=== PATIENT | male | born 2000 | race Hispanic/Latino ===

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

== ENCOUNTER → 2019-01-05 | Outpatient (CLI) | payer MEDICAID ==
[~2019-01-05] MED LIST changes: -LIDOCAINE HCL 2% JELLY 5 ML ONE; +LIDOCAINE/PRILOCAINE CREAM 5GM TUBE TP ONE
[2019-01-05 16:19] VITALS: BP 117/76
== END | disposition home or self-care (01) ==
LOC: WHH 14:00
PROVIDERS: ATTEND Family Medicine
DX: S41.101D Unspecified open wound of right upper arm, subsequent encounter (principal); S31.104D Unspecified open wound of abdominal wall, left lower quadrant without penetration into peritoneal cavity, subsequent encounter; S31.103A Unspecified open wound of abdominal wall, right lower quadrant without penetration into peritoneal cavity, initial encounter; L73.2 Hidradenitis suppurativa; Q90.9 Down syndrome, unspecified; E66.01 Morbid (severe) obesity due to excess calories; J45.909 Unspecified asthma, uncomplicated; X58.XXXA Exposure to other specified factors, initial encounter; Y93.89 Activity, other specified; Y92.89 Other specified places as the place of occurrence of the external cause; Y99.8 Other external cause status
CPT/HCPCS: 11042; 17250; J3490

== ENCOUNTER → 2019-01-12 | Outpatient (CLI) | payer MEDICAID ==
[~2019-01-12] MED LIST changes: +LIDOCAINE HCL 2% JELLY 5 ML ONE; -LIDOCAINE/PRILOCAINE CREAM 5GM TUBE TP ONE
[2019-01-12 16:01] VITALS: BP 110/58
== END | disposition home or self-care (01) ==
LOC: WHH 13:45
PROVIDERS: ATTEND Family Medicine
DX: L98.491 Non-pressure chronic ulcer of skin of other sites limited to breakdown of skin (principal); L73.2 Hidradenitis suppurativa; Q90.9 Down syndrome, unspecified; J45.909 Unspecified asthma, uncomplicated; E66.01 Morbid (severe) obesity due to excess calories
CPT/HCPCS: 99215

== ENCOUNTER → 2019-01-16 | Outpatient (CLI) | payer MEDICAID ==
[2019-01-16 16:40] VITALS: BP 110/78
== END | disposition home or self-care (01) ==
LOC: WHH 15:00
PROVIDERS: ATTEND Family Medicine
DX: L98.491 Non-pressure chronic ulcer of skin of other sites limited to breakdown of skin (principal); L73.2 Hidradenitis suppurativa; Q90.9 Down syndrome, unspecified; E66.01 Morbid (severe) obesity due to excess calories; J45.909 Unspecified asthma, uncomplicated
CPT/HCPCS: 99214

== ENCOUNTER → 2019-01-30 | Outpatient (CLI) | payer MEDICAID ==
[2019-01-30 16:52] VITALS: BP 134/69
== END | disposition home or self-care (01) ==
LOC: WHH 13:25
PROVIDERS: ATTEND Family Medicine
DX: L98.491 Non-pressure chronic ulcer of skin of other sites limited to breakdown of skin (principal); E66.01 Morbid (severe) obesity due to excess calories; L73.2 Hidradenitis suppurativa; J45.909 Unspecified asthma, uncomplicated; Q90.9 Down syndrome, unspecified; Q30.0 Choanal atresia
CPT/HCPCS: 99215; A6197

== ENCOUNTER → 2019-02-06 | Outpatient (CLI) | payer MEDICAID ==
[2019-02-06 18:26] VITALS: BP 91/59
== END | disposition home or self-care (01) ==
LOC: WHH 13:30
PROVIDERS: ATTEND Family Medicine
DX: L98.491 Non-pressure chronic ulcer of skin of other sites limited to breakdown of skin (principal); L73.2 Hidradenitis suppurativa; S31.104D Unspecified open wound of abdominal wall, left lower quadrant without penetration into peritoneal cavity, subsequent encounter; S31.103D Unspecified open wound of abdominal wall, right lower quadrant without penetration into peritoneal cavity, subsequent encounter; E66.01 Morbid (severe) obesity due to excess calories; J45.909 Unspecified asthma, uncomplicated; Q90.9 Down syndrome, unspecified; Q30.0 Choanal atresia; X58.XXXD Exposure to other specified factors, subsequent encounter
CPT/HCPCS: 17250; 99215; A6197

== ENCOUNTER → 2019-02-13 | Outpatient (CLI) | payer MEDICAID ==
[2019-02-13 17:13] VITALS: BP 126/60
== END | disposition home or self-care (01) ==
LOC: WHH 13:30
PROVIDERS: ATTEND Family Medicine
DX: L98.491 Non-pressure chronic ulcer of skin of other sites limited to breakdown of skin (principal); S31.104D Unspecified open wound of abdominal wall, left lower quadrant without penetration into peritoneal cavity, subsequent encounter; S31.103D Unspecified open wound of abdominal wall, right lower quadrant without penetration into peritoneal cavity, subsequent encounter; L73.2 Hidradenitis suppurativa; E66.01 Morbid (severe) obesity due to excess calories; J45.909 Unspecified asthma, uncomplicated; Q90.9 Down syndrome, unspecified; Q30.0 Choanal atresia; X58.XXXD Exposure to other specified factors, subsequent encounter
CPT/HCPCS: 17250; A6196

== ENCOUNTER → 2019-02-27 | Outpatient (CLI) | payer MEDICAID ==
[2019-02-27 15:56] VITALS: BP 125/68
== END | disposition home or self-care (01) ==
LOC: WHH 13:40
PROVIDERS: ATTEND Family Medicine
DX: L98.491 Non-pressure chronic ulcer of skin of other sites limited to breakdown of skin (principal); L73.2 Hidradenitis suppurativa; E66.01 Morbid (severe) obesity due to excess calories; J45.909 Unspecified asthma, uncomplicated; Q90.9 Down syndrome, unspecified; Q30.0 Choanal atresia
CPT/HCPCS: A6248; G0463

== ENCOUNTER → 2019-03-13 | Outpatient (CLI) | payer MEDICAID ==
[2019-03-13 14:56] VITALS: BP 125/90
== END | disposition home or self-care (01) ==
LOC: WHH 13:20
PROVIDERS: ATTEND Family Medicine
DX: L98.491 Non-pressure chronic ulcer of skin of other sites limited to breakdown of skin (principal); S31.104D Unspecified open wound of abdominal wall, left lower quadrant without penetration into peritoneal cavity, subsequent encounter; S31.103D Unspecified open wound of abdominal wall, right lower quadrant without penetration into peritoneal cavity, subsequent encounter; L73.2 Hidradenitis suppurativa; E66.01 Morbid (severe) obesity due to excess calories; J45.909 Unspecified asthma, uncomplicated; Q90.9 Down syndrome, unspecified; Q30.0 Choanal atresia; X58.XXXD Exposure to other specified factors, subsequent encounter
CPT/HCPCS: 99215; A6197

== ENCOUNTER → 2019-03-27 | Outpatient (CLI) | payer MEDICAID ==
[2019-03-27 16:27] VITALS: BP 99/61
== END | disposition home or self-care (01) ==
LOC: WHH 13:00
PROVIDERS: ATTEND Family Medicine
DX: L98.491 Non-pressure chronic ulcer of skin of other sites limited to breakdown of skin (principal); S31.104D Unspecified open wound of abdominal wall, left lower quadrant without penetration into peritoneal cavity, subsequent encounter; S31.103D Unspecified open wound of abdominal wall, right lower quadrant without penetration into peritoneal cavity, subsequent encounter; L73.2 Hidradenitis suppurativa; E66.01 Morbid (severe) obesity due to excess calories; J45.909 Unspecified asthma, uncomplicated; Q90.9 Down syndrome, unspecified; Q30.0 Choanal atresia; X58.XXXD Exposure to other specified factors, subsequent encounter
CPT/HCPCS: 99214; A6197; A6248

== ENCOUNTER → 2019-04-03 | Outpatient (CLI) | payer MEDICAID ==
[2019-04-03 16:34] VITALS: BP 133/52
== END | disposition home or self-care (01) ==
LOC: WHH 13:00
PROVIDERS: ATTEND Family Medicine
DX: L98.491 Non-pressure chronic ulcer of skin of other sites limited to breakdown of skin (principal); S31.104D Unspecified open wound of abdominal wall, left lower quadrant without penetration into peritoneal cavity, subsequent encounter; S31.103D Unspecified open wound of abdominal wall, right lower quadrant without penetration into peritoneal cavity, subsequent encounter; L73.2 Hidradenitis suppurativa; E66.01 Morbid (severe) obesity due to excess calories; J45.909 Unspecified asthma, uncomplicated; Q90.9 Down syndrome, unspecified; Q30.0 Choanal atresia; X58.XXXD Exposure to other specified factors, subsequent encounter
CPT/HCPCS: 17250 ×2; A6197

== ENCOUNTER → 2019-04-17 | Outpatient (CLI) | payer MEDICAID ==
[2019-04-17 16:15] VITALS: BP 131/70
== END | disposition home or self-care (01) ==
LOC: WHH 13:00
PROVIDERS: ATTEND Family Medicine
DX: L98.491 Non-pressure chronic ulcer of skin of other sites limited to breakdown of skin (principal); S31.104D Unspecified open wound of abdominal wall, left lower quadrant without penetration into peritoneal cavity, subsequent encounter; S31.103D Unspecified open wound of abdominal wall, right lower quadrant without penetration into peritoneal cavity, subsequent encounter; L73.2 Hidradenitis suppurativa; E66.01 Morbid (severe) obesity due to excess calories; J45.909 Unspecified asthma, uncomplicated; Q90.9 Down syndrome, unspecified; Q30.0 Choanal atresia; X58.XXXD Exposure to other specified factors, subsequent encounter
CPT/HCPCS: 99215; A6197; A6248

== ENCOUNTER → 2019-04-24 | Outpatient (CLI) | payer MEDICAID ==
[2019-04-24 15:56] VITALS: BP 142/100
== END | disposition home or self-care (01) ==
LOC: WHH 13:30
PROVIDERS: ATTEND Family Medicine
DX: L98.491 Non-pressure chronic ulcer of skin of other sites limited to breakdown of skin (principal); L73.2 Hidradenitis suppurativa; E66.01 Morbid (severe) obesity due to excess calories; J45.909 Unspecified asthma, uncomplicated; Q90.9 Down syndrome, unspecified; Q30.0 Choanal atresia
CPT/HCPCS: 99215; A6197; A6248

== ENCOUNTER → 2019-05-01 | Outpatient (CLI) | payer MEDICAID ==
[2019-05-01 15:04] VITALS: BP 111/57
== END | disposition home or self-care (01) ==
LOC: WHH 13:00
PROVIDERS: ATTEND Family Medicine
DX: L98.491 Non-pressure chronic ulcer of skin of other sites limited to breakdown of skin (principal); L73.2 Hidradenitis suppurativa; E66.01 Morbid (severe) obesity due to excess calories; J45.909 Unspecified asthma, uncomplicated; Q90.9 Down syndrome, unspecified; Q30.0 Choanal atresia
CPT/HCPCS: 99215; A6197; A6248; G0463

== ENCOUNTER → 2019-05-15 | Outpatient (CLI) | payer MEDICAID ==
[2019-05-15 17:02] VITALS: BP 138/87
== END | disposition home or self-care (01) ==
LOC: WHH 13:30
PROVIDERS: ATTEND Family Medicine
DX: L98.491 Non-pressure chronic ulcer of skin of other sites limited to breakdown of skin (principal); L73.2 Hidradenitis suppurativa; J45.909 Unspecified asthma, uncomplicated; E66.01 Morbid (severe) obesity due to excess calories; Q90.9 Down syndrome, unspecified; Q30.0 Choanal atresia
CPT/HCPCS: 99214; A6197; A6260

== ENCOUNTER → 2019-05-22 | Outpatient (CLI) | payer MEDICAID ==
[~2019-05-22] MED LIST changes: +HONEY 1 APPL/ML TUBE TP ONE; -LIDOCAINE HCL 2% JELLY 5 ML ONE
[2019-05-22 15:40] VITALS: BP 128/72
== END | disposition home or self-care (01) ==
LOC: WHH 13:50
PROVIDERS: ATTEND Family Medicine
DX: L98.491 Non-pressure chronic ulcer of skin of other sites limited to breakdown of skin (principal); L73.2 Hidradenitis suppurativa; J45.909 Unspecified asthma, uncomplicated; E66.01 Morbid (severe) obesity due to excess calories; Q90.9 Down syndrome, unspecified; Q30.0 Choanal atresia
CPT/HCPCS: 17250

== ENCOUNTER → 2019-05-29 | Outpatient (CLI) | payer MEDICAID ==
[~2019-05-29] MED LIST changes: -HONEY 1 APPL/ML TUBE TP ONE; +LIDOCAINE/PRILOCAINE CREAM 5GM TUBE TP ONE
[2019-05-29 16:44] VITALS: BP 110/72
== END | disposition home or self-care (01) ==
LOC: WHH 13:45
PROVIDERS: ATTEND Family Medicine
DX: L98.491 Non-pressure chronic ulcer of skin of other sites limited to breakdown of skin (principal); L73.2 Hidradenitis suppurativa; J45.909 Unspecified asthma, uncomplicated; E66.01 Morbid (severe) obesity due to excess calories; Q90.9 Down syndrome, unspecified; Q30.0 Choanal atresia
CPT/HCPCS: 17250 ×2; A6197; J3490

== ENCOUNTER → 2019-06-05 | Outpatient (CLI) | payer MEDICAID ==
[~2019-06-05] MED LIST changes: +HONEY 1 APPL/ML TUBE TP ONE; +LIDOCAINE HCL 2% JELLY 5 ML ONE; -LIDOCAINE/PRILOCAINE CREAM 5GM TUBE TP ONE
[2019-06-05 15:23] VITALS: BP 109/63
== END | disposition home or self-care (01) ==
LOC: WHH 13:30
PROVIDERS: ATTEND Family Medicine
DX: L98.491 Non-pressure chronic ulcer of skin of other sites limited to breakdown of skin (principal); L73.2 Hidradenitis suppurativa; J45.909 Unspecified asthma, uncomplicated; E66.01 Morbid (severe) obesity due to excess calories; Q90.9 Down syndrome, unspecified; Q30.0 Choanal atresia
CPT/HCPCS: 17250 ×2; A6197

== ENCOUNTER → 2019-06-12 | Outpatient (CLI) | payer MEDICAID ==
[2019-06-12 16:27] VITALS: BP 110/70
== END | disposition home or self-care (01) ==
LOC: WHH 14:00
PROVIDERS: ATTEND Family Medicine
DX: L98.491 Non-pressure chronic ulcer of skin of other sites limited to breakdown of skin (principal); L73.2 Hidradenitis suppurativa; J45.909 Unspecified asthma, uncomplicated; E66.01 Morbid (severe) obesity due to excess calories; Q90.9 Down syndrome, unspecified; Q30.0 Choanal atresia
CPT/HCPCS: 99215; A6197

== ENCOUNTER → 2019-06-19 | Outpatient (CLI) | payer MEDICAID ==
[~2019-06-19] MED LIST changes: -HONEY 1 APPL/ML TUBE TP ONE
[2019-06-19 15:46] VITALS: BP 134/81
== END | disposition home or self-care (01) ==
LOC: WHH 13:50
PROVIDERS: ATTEND Family Medicine
DX: L98.491 Non-pressure chronic ulcer of skin of other sites limited to breakdown of skin (principal); L73.2 Hidradenitis suppurativa; J45.909 Unspecified asthma, uncomplicated; E66.01 Morbid (severe) obesity due to excess calories; Q90.9 Down syndrome, unspecified; Q30.0 Choanal atresia; L60.0 Ingrowing nail
CPT/HCPCS: 17250 ×2; A6197

== ENCOUNTER → 2019-08-03 | Outpatient (CLI) | payer MEDICAID ==
[2019-08-03 13:29] VITALS: BP 161/107
== END | disposition home or self-care (01) ==
LOC: WHH 11:45
PROVIDERS: ATTEND Family Medicine
DX: T81.89XA Other complications of procedures, not elsewhere classified, initial encounter (principal); L73.2 Hidradenitis suppurativa; Q90.9 Down syndrome, unspecified; Q30.0 Choanal atresia; J45.909 Unspecified asthma, uncomplicated; E66.01 Morbid (severe) obesity due to excess calories; Y83.8 Other surgical procedures as the cause of abnormal reaction of the patient, or of later complication, without mention of misadventure at the time of the procedure; Y92.89 Other specified places as the place of occurrence of the external cause
CPT/HCPCS: 99215; A6197

== ENCOUNTER → 2019-08-14 | Outpatient (CLI) | payer MEDICAID ==
[2019-08-14 15:54] VITALS: BP 124/66
== END | disposition home or self-care (01) ==
LOC: WHH 13:50
PROVIDERS: ATTEND Family Medicine
DX: T81.89XD Other complications of procedures, not elsewhere classified, subsequent encounter (principal); L98.492 Non-pressure chronic ulcer of skin of other sites with fat layer exposed; L73.2 Hidradenitis suppurativa; J45.909 Unspecified asthma, uncomplicated; E66.01 Morbid (severe) obesity due to excess calories; Q90.9 Down syndrome, unspecified; Q30.0 Choanal atresia; Y83.8 Other surgical procedures as the cause of abnormal reaction of the patient, or of later complication, without mention of misadventure at the time of the procedure
CPT/HCPCS: 11042; A6197; A6248

== ENCOUNTER → 2019-08-24 | Outpatient (CLI) | payer MEDICAID ==
[~2019-08-24] MED LIST changes: -LIDOCAINE HCL 2% JELLY 5 ML ONE; +LIDOCAINE/PRILOCAINE CREAM 5GM TUBE TP ONE
[2019-08-24 14:11] VITALS: BP 124/89
== END | disposition home or self-care (01) ==
LOC: WHH 10:00
PROVIDERS: ATTEND Family Medicine
DX: T81.89XD Other complications of procedures, not elsewhere classified, subsequent encounter (principal); L98.492 Non-pressure chronic ulcer of skin of other sites with fat layer exposed; L73.2 Hidradenitis suppurativa; J45.909 Unspecified asthma, uncomplicated; E66.01 Morbid (severe) obesity due to excess calories; Q90.9 Down syndrome, unspecified; Q30.0 Choanal atresia; Y83.8 Other surgical procedures as the cause of abnormal reaction of the patient, or of later complication, without mention of misadventure at the time of the procedure
CPT/HCPCS: 11042; A6197; J3490

== ENCOUNTER → 2019-09-04 | Outpatient (CLI) | payer MEDICAID ==
[2019-09-04 15:18] VITALS: BP 110/66
== END | disposition home or self-care (01) ==
LOC: WHH 13:40
PROVIDERS: ATTEND Family Medicine
DX: T81.89XD Other complications of procedures, not elsewhere classified, subsequent encounter (principal); L98.492 Non-pressure chronic ulcer of skin of other sites with fat layer exposed; L73.2 Hidradenitis suppurativa; J45.909 Unspecified asthma, uncomplicated; E66.01 Morbid (severe) obesity due to excess calories; Q90.9 Down syndrome, unspecified; Q30.0 Choanal atresia; Y83.8 Other surgical procedures as the cause of abnormal reaction of the patient, or of later complication, without mention of misadventure at the time of the procedure
CPT/HCPCS: 11042; A6197; J3490

== ENCOUNTER → 2019-09-11 | Outpatient (CLI) | payer MEDICAID ==
[~2019-09-11] MED LIST changes: +HONEY 1 APPL/ML TUBE TP ONE
[2019-09-11 15:18] VITALS: BP 106/66
== END | disposition home or self-care (01) ==
LOC: WHH 13:45
PROVIDERS: ATTEND Family Medicine
DX: T81.89XD Other complications of procedures, not elsewhere classified, subsequent encounter (principal); L98.492 Non-pressure chronic ulcer of skin of other sites with fat layer exposed; L73.2 Hidradenitis suppurativa; J45.909 Unspecified asthma, uncomplicated; E66.01 Morbid (severe) obesity due to excess calories; Q90.9 Down syndrome, unspecified; Q30.0 Choanal atresia; Y83.8 Other surgical procedures as the cause of abnormal reaction of the patient, or of later complication, without mention of misadventure at the time of the procedure
CPT/HCPCS: 11042; 17250; A6197 ×2; J3490; 11045

== ENCOUNTER → 2019-09-28 | Outpatient (CLI) | payer MEDICAID ==
[~2019-09-28] MED LIST changes: -HONEY 1 APPL/ML TUBE TP ONE
[2019-09-28 15:07] VITALS: BP 110/66
== END | disposition home or self-care (01) ==
LOC: WHH 13:00
PROVIDERS: ATTEND Family Medicine
DX: T81.89XD Other complications of procedures, not elsewhere classified, subsequent encounter (principal); L98.492 Non-pressure chronic ulcer of skin of other sites with fat layer exposed; L73.2 Hidradenitis suppurativa; J45.909 Unspecified asthma, uncomplicated; E66.01 Morbid (severe) obesity due to excess calories; Q90.9 Down syndrome, unspecified; Q30.0 Choanal atresia; Y83.8 Other surgical procedures as the cause of abnormal reaction of the patient, or of later complication, without mention of misadventure at the time of the procedure
CPT/HCPCS: 17250; A6197 ×2; A6260; J3490

== ENCOUNTER → 2019-10-02 | Outpatient (CLI) | payer MEDICAID ==
[2019-10-02 15:51] VITALS: BP 110/72
== END | disposition home or self-care (01) ==
LOC: WHH 13:40
PROVIDERS: ATTEND Family Medicine
DX: T81.89XD Other complications of procedures, not elsewhere classified, subsequent encounter (principal); L98.492 Non-pressure chronic ulcer of skin of other sites with fat layer exposed; L73.2 Hidradenitis suppurativa; J45.909 Unspecified asthma, uncomplicated; E66.01 Morbid (severe) obesity due to excess calories; Q90.9 Down syndrome, unspecified; Q30.0 Choanal atresia; Y83.8 Other surgical procedures as the cause of abnormal reaction of the patient, or of later complication, without mention of misadventure at the time of the procedure
CPT/HCPCS: 11042; A6197; J3490; 17250

== ENCOUNTER → 2019-10-09 | Outpatient (CLI) | payer MEDICAID ==
[~2019-10-09] MED LIST changes: +HONEY 1 APPL/ML TUBE TP ONE; -LIDOCAINE/PRILOCAINE CREAM 5GM TUBE TP ONE
[2019-10-09 15:23] VITALS: BP 106/77
== END | disposition home or self-care (01) ==
LOC: WHH 13:30
PROVIDERS: ATTEND Family Medicine
DX: T81.89XD Other complications of procedures, not elsewhere classified, subsequent encounter (principal); L98.492 Non-pressure chronic ulcer of skin of other sites with fat layer exposed; L73.2 Hidradenitis suppurativa; J45.909 Unspecified asthma, uncomplicated; E66.01 Morbid (severe) obesity due to excess calories; Q90.9 Down syndrome, unspecified; Q30.0 Choanal atresia; Y83.8 Other surgical procedures as the cause of abnormal reaction of the patient, or of later complication, without mention of misadventure at the time of the procedure
CPT/HCPCS: 11042; A6197

== ENCOUNTER → 2019-10-16 | Outpatient (CLI) | payer MEDICAID ==
[~2019-10-16] MED LIST changes: -HONEY 1 APPL/ML TUBE TP ONE; +LIDOCAINE HCL 2% JELLY 5 ML ONE; +SILVER NITRATE APPLICATOR 1 SWAB TP ONE
[2019-10-16 15:18] VITALS: BP 126/83
== END | disposition home or self-care (01) ==
LOC: WHH 13:50
PROVIDERS: ATTEND Family Medicine
DX: T81.89XD Other complications of procedures, not elsewhere classified, subsequent encounter (principal); L98.491 Non-pressure chronic ulcer of skin of other sites limited to breakdown of skin; L73.2 Hidradenitis suppurativa; J45.909 Unspecified asthma, uncomplicated; E66.01 Morbid (severe) obesity due to excess calories; Q90.9 Down syndrome, unspecified; Q30.0 Choanal atresia; Y83.8 Other surgical procedures as the cause of abnormal reaction of the patient, or of later complication, without mention of misadventure at the time of the procedure
CPT/HCPCS: 17250; A6197

== ENCOUNTER → 2019-10-23 | Outpatient (CLI) | payer MEDICAID ==
[~2019-10-23] MED LIST changes: -SILVER NITRATE APPLICATOR 1 SWAB TP ONE
[2019-10-23 14:02] VITALS: BP 100/70
== END | disposition home or self-care (01) ==
LOC: WHH 12:30
PROVIDERS: ATTEND Family Medicine
DX: T81.89XD Other complications of procedures, not elsewhere classified, subsequent encounter (principal); L98.492 Non-pressure chronic ulcer of skin of other sites with fat layer exposed; L73.2 Hidradenitis suppurativa; J45.909 Unspecified asthma, uncomplicated; E66.01 Morbid (severe) obesity due to excess calories; Q90.9 Down syndrome, unspecified; Q30.0 Choanal atresia; Y83.8 Other surgical procedures as the cause of abnormal reaction of the patient, or of later complication, without mention of misadventure at the time of the procedure
CPT/HCPCS: 11042; 17250; A6197

== ENCOUNTER → 2019-11-09 | Outpatient (CLI) | payer MEDICAID ==
[2019-11-09 15:25] VITALS: BP 128/78
== END | disposition home or self-care (01) ==
LOC: WHH 13:45
PROVIDERS: ATTEND Family Medicine
DX: T81.89XD Other complications of procedures, not elsewhere classified, subsequent encounter (principal); L98.492 Non-pressure chronic ulcer of skin of other sites with fat layer exposed; L73.2 Hidradenitis suppurativa; J45.909 Unspecified asthma, uncomplicated; E66.01 Morbid (severe) obesity due to excess calories; Q90.9 Down syndrome, unspecified; Q30.0 Choanal atresia; Y83.8 Other surgical procedures as the cause of abnormal reaction of the patient, or of later complication, without mention of misadventure at the time of the procedure
CPT/HCPCS: 99214; A6197

== ENCOUNTER → 2019-11-13 | Outpatient (CLI) | payer MEDICAID ==
[2019-11-13 15:46] VITALS: BP 132/72
== END | disposition home or self-care (01) ==
LOC: WHH 13:40
PROVIDERS: ATTEND Family Medicine
DX: T81.89XD Other complications of procedures, not elsewhere classified, subsequent encounter (principal); L98.492 Non-pressure chronic ulcer of skin of other sites with fat layer exposed; L73.2 Hidradenitis suppurativa; J45.909 Unspecified asthma, uncomplicated; E66.01 Morbid (severe) obesity due to excess calories; Q90.9 Down syndrome, unspecified; Q30.0 Choanal atresia; Y83.8 Other surgical procedures as the cause of abnormal reaction of the patient, or of later complication, without mention of misadventure at the time of the procedure
CPT/HCPCS: 11042; A6196; 17250

== ENCOUNTER → 2019-11-27 | Outpatient (CLI) | payer MEDICAID ==
[~2019-11-27] MED LIST changes: +GENTAMICIN SULFATE 15 GM CREAM.GM. TP ONE; -LIDOCAINE HCL 2% JELLY 5 ML ONE; +LIDOCAINE HCL 4% LTA SOL 4 ML VIAL ONE
[2019-11-27 15:03] VITALS: BP 140/68
== END | disposition home or self-care (01) ==
LOC: WHH 13:45
PROVIDERS: ATTEND Family Medicine
DX: L98.492 Non-pressure chronic ulcer of skin of other sites with fat layer exposed (principal); L73.2 Hidradenitis suppurativa; E66.01 Morbid (severe) obesity due to excess calories; Q30.0 Choanal atresia; Q90.9 Down syndrome, unspecified; J45.909 Unspecified asthma, uncomplicated
CPT/HCPCS: 11042; 17250; A6197

== ENCOUNTER → 2019-12-04 | Outpatient (CLI) | payer MEDICAID ==
[~2019-12-04] MED LIST changes: -GENTAMICIN SULFATE 15 GM CREAM.GM. TP ONE; -LIDOCAINE HCL 4% LTA SOL 4 ML VIAL ONE; +LIDOCAINE/PRILOCAINE CREAM 5GM TUBE TP ONE; +SILVER NITRATE APPLICATOR 1 SWAB TP ONE
[2019-12-04 17:05] VITALS: BP 98/57
== END | disposition home or self-care (01) ==
LOC: WHH 13:00
PROVIDERS: ATTEND Family Medicine
DX: L98.492 Non-pressure chronic ulcer of skin of other sites with fat layer exposed (principal); L73.2 Hidradenitis suppurativa; E66.01 Morbid (severe) obesity due to excess calories; Q30.0 Choanal atresia; Q90.9 Down syndrome, unspecified; J45.909 Unspecified asthma, uncomplicated
CPT/HCPCS: 11042; A6197; J3490

== ENCOUNTER → 2019-12-11 | Outpatient (CLI) | payer MEDICAID ==
[~2019-12-11] MED LIST changes: -SILVER NITRATE APPLICATOR 1 SWAB TP ONE
[2019-12-11 16:00] VITALS: BP 95/59
== END | disposition home or self-care (01) ==
LOC: WHH 13:00
PROVIDERS: ATTEND Family Medicine
DX: L98.491 Non-pressure chronic ulcer of skin of other sites limited to breakdown of skin (principal); L73.2 Hidradenitis suppurativa; E66.01 Morbid (severe) obesity due to excess calories; J45.909 Unspecified asthma, uncomplicated; Q30.0 Choanal atresia
CPT/HCPCS: 17250 ×2; A6196; J3490

== ENCOUNTER → 2019-12-18 | Outpatient (CLI) | payer MEDICAID ==
[~2019-12-18] MED LIST changes: +SILVER NITRATE APPLICATOR 1 SWAB TP ONE
[2019-12-18 15:35] VITALS: BP 111/51
== END | disposition home or self-care (01) ==
LOC: WHH 13:00
PROVIDERS: ATTEND Family Medicine
DX: L98.492 Non-pressure chronic ulcer of skin of other sites with fat layer exposed (principal); L73.2 Hidradenitis suppurativa; E66.01 Morbid (severe) obesity due to excess calories; J45.909 Unspecified asthma, uncomplicated; Q30.0 Choanal atresia; Q90.9 Down syndrome, unspecified
CPT/HCPCS: 11042; A6196; J3490; 17250

== ENCOUNTER → 2019-12-25 | Outpatient (CLI) | payer MEDICAID ==
[2019-12-25 16:49] VITALS: BP 110/73
== END | disposition home or self-care (01) ==
LOC: WHH 13:00
PROVIDERS: ATTEND Family Medicine
DX: L98.492 Non-pressure chronic ulcer of skin of other sites with fat layer exposed (principal); L73.2 Hidradenitis suppurativa; E66.01 Morbid (severe) obesity due to excess calories; J45.909 Unspecified asthma, uncomplicated; Q30.0 Choanal atresia; Q90.9 Down syndrome, unspecified
CPT/HCPCS: 11042; 17250; A6197

== ENCOUNTER → 2020-01-01 | Outpatient (CLI) | payer MEDICAID ==
[~2020-01-01] MED LIST changes: -LIDOCAINE/PRILOCAINE CREAM 5GM TUBE TP ONE
[2020-01-01 14:54] VITALS: BP 96/68
== END | disposition home or self-care (01) ==
LOC: WHH 13:00
PROVIDERS: ATTEND Family Medicine
DX: L98.492 Non-pressure chronic ulcer of skin of other sites with fat layer exposed (principal); L73.2 Hidradenitis suppurativa; E66.01 Morbid (severe) obesity due to excess calories; J45.909 Unspecified asthma, uncomplicated; Q90.9 Down syndrome, unspecified; Q30.0 Choanal atresia
CPT/HCPCS: 11042; A6197; 17250

== ENCOUNTER → 2020-01-08 | Outpatient (CLI) | payer MEDICAID ==
[2020-01-08 16:55] VITALS: BP 108/72
== END | disposition home or self-care (01) ==
LOC: WHH 13:00
PROVIDERS: ATTEND Family Medicine
DX: L98.492 Non-pressure chronic ulcer of skin of other sites with fat layer exposed (principal); L73.2 Hidradenitis suppurativa; E66.01 Morbid (severe) obesity due to excess calories; Q30.0 Choanal atresia; Q90.9 Down syndrome, unspecified; J45.909 Unspecified asthma, uncomplicated
CPT/HCPCS: 11042; A6197; 17250

== ENCOUNTER → 2020-01-15 | Outpatient (CLI) | payer MEDICAID ==
[~2020-01-15] MED LIST changes: +LIDOCAINE/PRILOCAINE CREAM 5GM TUBE TP ONE; -SILVER NITRATE APPLICATOR 1 SWAB TP ONE
[2020-01-15 15:57] VITALS: BP 114/60
== END | disposition home or self-care (01) ==
LOC: WHH 13:30
PROVIDERS: ATTEND Family Medicine
DX: L98.491 Non-pressure chronic ulcer of skin of other sites limited to breakdown of skin (principal); L73.2 Hidradenitis suppurativa; E66.01 Morbid (severe) obesity due to excess calories; Q30.0 Choanal atresia; Q90.9 Down syndrome, unspecified; J45.909 Unspecified asthma, uncomplicated
CPT/HCPCS: 17250; A6196; J3490

== ENCOUNTER → 2020-01-22 | Outpatient (CLI) | payer MEDICAID ==
[~2020-01-22] MED LIST changes: +HONEY 1 APPL/ML TUBE TP ONE
[2020-01-22 14:21] VITALS: BP 92/52
== END | disposition home or self-care (01) ==
LOC: WHH 13:00
PROVIDERS: ATTEND Family Medicine
DX: L98.492 Non-pressure chronic ulcer of skin of other sites with fat layer exposed (principal); L73.2 Hidradenitis suppurativa; E66.01 Morbid (severe) obesity due to excess calories; J45.909 Unspecified asthma, uncomplicated; Q30.0 Choanal atresia; Q90.9 Down syndrome, unspecified
CPT/HCPCS: 11042; A6197; J3490

== ENCOUNTER → 2020-01-29 | Outpatient (CLI) | payer MEDICAID ==
[~2020-01-29] MED LIST changes: -HONEY 1 APPL/ML TUBE TP ONE
[2020-01-29 15:32] VITALS: BP 98/57
== END | disposition home or self-care (01) ==
LOC: WHH 13:00
PROVIDERS: ATTEND Family Medicine
DX: L98.492 Non-pressure chronic ulcer of skin of other sites with fat layer exposed (principal); L73.2 Hidradenitis suppurativa; E66.01 Morbid (severe) obesity due to excess calories; J45.909 Unspecified asthma, uncomplicated; Q30.0 Choanal atresia; Q90.9 Down syndrome, unspecified
CPT/HCPCS: 11042; A6196; J3490

== ENCOUNTER → 2020-02-05 | Outpatient (CLI) | payer MEDICAID ==
[~2020-02-05] MED LIST changes: -LIDOCAINE/PRILOCAINE CREAM 5GM TUBE TP ONE; +SILVER NITRATE APPLICATOR 1 SWAB TP ONE
[2020-02-05 15:32] VITALS: BP 110/78
== END | disposition home or self-care (01) ==
LOC: WHH 13:00
PROVIDERS: ATTEND Family Medicine
DX: L98.492 Non-pressure chronic ulcer of skin of other sites with fat layer exposed (principal); L73.2 Hidradenitis suppurativa; E66.01 Morbid (severe) obesity due to excess calories; J45.909 Unspecified asthma, uncomplicated; Q30.0 Choanal atresia; Q90.9 Down syndrome, unspecified
CPT/HCPCS: 11042; A6197; 17250

== ENCOUNTER → 2020-02-12 | Outpatient (CLI) | payer MEDICAID ==
[~2020-02-12] MED LIST changes: +LIDOCAINE/PRILOCAINE CREAM 5GM TUBE TP ONE
[2020-02-12 15:00] VITALS: BP 112/61
== END | disposition home or self-care (01) ==
LOC: WHH 13:00
PROVIDERS: ATTEND Family Medicine
DX: L98.492 Non-pressure chronic ulcer of skin of other sites with fat layer exposed (principal); L73.2 Hidradenitis suppurativa; E66.01 Morbid (severe) obesity due to excess calories; J45.909 Unspecified asthma, uncomplicated; Q30.0 Choanal atresia; Q90.9 Down syndrome, unspecified
CPT/HCPCS: 11042; 17250; A6197; J3490

== ENCOUNTER → 2020-02-19 | Outpatient (CLI) | payer MEDICAID ==
[~2020-02-19] MED LIST changes: +HONEY 1 APPL/ML TUBE TP ONE; -LIDOCAINE/PRILOCAINE CREAM 5GM TUBE TP ONE
[2020-02-19 16:07] VITALS: BP 134/66
== END | disposition home or self-care (01) ==
LOC: WHH 14:00
PROVIDERS: ATTEND Family Medicine
DX: L98.492 Non-pressure chronic ulcer of skin of other sites with fat layer exposed (principal); L73.2 Hidradenitis suppurativa; E66.01 Morbid (severe) obesity due to excess calories; J45.909 Unspecified asthma, uncomplicated; Q90.9 Down syndrome, unspecified; Q30.0 Choanal atresia
CPT/HCPCS: 11042; 17250; A6197

== ENCOUNTER → 2020-02-26 | Outpatient (CLI) | payer MEDICAID ==
[~2020-02-26] MED LIST changes: -HONEY 1 APPL/ML TUBE TP ONE; +LIDOCAINE HCL 4% LTA SOL 4 ML VIAL ONE; -SILVER NITRATE APPLICATOR 1 SWAB TP ONE
[2020-02-26 16:16] VITALS: BP 136/98
== END | disposition home or self-care (01) ==
LOC: WHH 13:00
PROVIDERS: ATTEND Family Medicine
DX: L98.492 Non-pressure chronic ulcer of skin of other sites with fat layer exposed (principal); L73.2 Hidradenitis suppurativa; E66.01 Morbid (severe) obesity due to excess calories; J45.909 Unspecified asthma, uncomplicated; Q30.0 Choanal atresia; Q90.9 Down syndrome, unspecified
CPT/HCPCS: 11042; A6197

== ENCOUNTER → 2020-03-18 | Outpatient (CLI) | payer MEDICAID ==
[~2020-03-18] MED LIST changes: +HONEY 1 APPL/ML TUBE TP ONE; -LIDOCAINE HCL 4% LTA SOL 4 ML VIAL ONE
[2020-03-18 15:24] VITALS: BP 110/88
== END | disposition home or self-care (01) ==
LOC: WHH 13:00
PROVIDERS: ATTEND Family Medicine
DX: L98.491 Non-pressure chronic ulcer of skin of other sites limited to breakdown of skin (principal); L73.2 Hidradenitis suppurativa; E66.01 Morbid (severe) obesity due to excess calories; J45.909 Unspecified asthma, uncomplicated; Q30.0 Choanal atresia; Q90.9 Down syndrome, unspecified
CPT/HCPCS: 99215; A6197

== ENCOUNTER → 2020-04-01 | Outpatient (CLI) | payer MEDICAID ==
[2020-04-01 16:16] VITALS: BP 131/69
== END | disposition home or self-care (01) ==
LOC: WHH 13:00
PROVIDERS: ATTEND Family Medicine
DX: L98.492 Non-pressure chronic ulcer of skin of other sites with fat layer exposed (principal); L73.2 Hidradenitis suppurativa; E66.01 Morbid (severe) obesity due to excess calories; J45.909 Unspecified asthma, uncomplicated; Q30.0 Choanal atresia; Q90.0 Trisomy 21, nonmosaicism (meiotic nondisjunction)
CPT/HCPCS: 11042; A6197

== ENCOUNTER → 2020-04-15 | Outpatient (CLI) | payer MEDICAID ==
[2020-04-15 17:02] VITALS: BP 115/83
== END | disposition home or self-care (01) ==
LOC: WHH 13:00
PROVIDERS: ATTEND Family Medicine
DX: L98.492 Non-pressure chronic ulcer of skin of other sites with fat layer exposed (principal); L73.2 Hidradenitis suppurativa; E66.01 Morbid (severe) obesity due to excess calories; J45.909 Unspecified asthma, uncomplicated; Q30.0 Choanal atresia; Q90.0 Trisomy 21, nonmosaicism (meiotic nondisjunction)
CPT/HCPCS: 11042; A6197; A6213

== ENCOUNTER → 2020-05-06 | Outpatient (CLI) | payer MEDICAID ==
[~2020-05-06] MED LIST changes: -HONEY 1 APPL/ML TUBE TP ONE; +LIDOCAINE HCL 4% LTA SOL 4 ML VIAL ONE
== END | disposition home or self-care (01) ==
LOC: WHH 13:00
PROVIDERS: ATTEND Family Medicine
DX: T81.41XD Infection following a procedure, superficial incisional surgical site, subsequent encounter (principal); L98.492 Non-pressure chronic ulcer of skin of other sites with fat layer exposed; L73.2 Hidradenitis suppurativa; Q30.0 Choanal atresia; E66.01 Morbid (severe) obesity due to excess calories; J45.909 Unspecified asthma, uncomplicated; Q90.9 Down syndrome, unspecified; Z68.43 Body mass index [BMI] 50.0-59.9, adult; Y83.8 Other surgical procedures as the cause of abnormal reaction of the patient, or of later complication, without mention of misadventure at the time of the procedure
CPT/HCPCS: 11042; A6197

== ENCOUNTER → 2020-05-27 | Outpatient (CLI) | payer MEDICAID ==
[~2020-05-27] MED LIST changes: +HONEY 1 APPL/ML TUBE TP ONE
== END | disposition home or self-care (01) ==
LOC: WHH 13:00
PROVIDERS: ATTEND Family Medicine
DX: T81.41XD Infection following a procedure, superficial incisional surgical site, subsequent encounter (principal); L98.492 Non-pressure chronic ulcer of skin of other sites with fat layer exposed; L73.2 Hidradenitis suppurativa; Q30.0 Choanal atresia; E66.01 Morbid (severe) obesity due to excess calories; J45.909 Unspecified asthma, uncomplicated; Q90.9 Down syndrome, unspecified; Z68.43 Body mass index [BMI] 50.0-59.9, adult; Y83.8 Other surgical procedures as the cause of abnormal reaction of the patient, or of later complication, without mention of misadventure at the time of the procedure
CPT/HCPCS: 11042; A6197

== ENCOUNTER → 2020-06-17 | Outpatient (CLI) | payer MEDICAID | END | disposition home or self-care (01) | LOC: WHH 13:05 | PROVIDERS: ATTEND Family Medicine | DX: T81.41XD Infection following a procedure, superficial incisional surgical site, subsequent encounter (principal); L98.492 Non-pressure chronic ulcer of skin of other sites with fat layer exposed; L73.2 Hidradenitis suppurativa; Q30.0 Choanal atresia; E66.01 Morbid (severe) obesity due to excess calories; J45.909 Unspecified asthma, uncomplicated; Q90.9 Down syndrome, unspecified; Z68.43 Body mass index [BMI] 50.0-59.9, adult; Y83.8 Other surgical procedures as the cause of abnormal reaction of the patient, or of later complication, without mention of misadventure at the time of the procedure | CPT/HCPCS: 11042; 17250; A6197 ==

== ENCOUNTER → 2020-07-01 | Outpatient (CLI) | payer MEDICAID ==
[~2020-07-01] MED LIST changes: -HONEY 1 APPL/ML TUBE TP ONE; -LIDOCAINE HCL 4% LTA SOL 4 ML VIAL ONE; +LIDOCAINE/PRILOCAINE CREAM 5GM TUBE TP ONE
== END | disposition home or self-care (01) ==
LOC: WHH 13:00
PROVIDERS: ATTEND Family Medicine
DX: T81.41XD Infection following a procedure, superficial incisional surgical site, subsequent encounter (principal); L98.492 Non-pressure chronic ulcer of skin of other sites with fat layer exposed; L73.2 Hidradenitis suppurativa; Q30.0 Choanal atresia; E66.01 Morbid (severe) obesity due to excess calories; J45.909 Unspecified asthma, uncomplicated; Q90.9 Down syndrome, unspecified; Z68.43 Body mass index [BMI] 50.0-59.9, adult; Y83.8 Other surgical procedures as the cause of abnormal reaction of the patient, or of later complication, without mention of misadventure at the time of the procedure
CPT/HCPCS: 11042; 17250; A6197; J3490

== ENCOUNTER → 2020-07-22 | Outpatient (CLI) | payer MEDICAID | END | disposition home or self-care (01) | LOC: WHH 13:00 | PROVIDERS: ATTEND Family Medicine | DX: T81.41XD Infection following a procedure, superficial incisional surgical site, subsequent encounter (principal); L98.492 Non-pressure chronic ulcer of skin of other sites with fat layer exposed; L73.2 Hidradenitis suppurativa; Q30.0 Choanal atresia; E66.01 Morbid (severe) obesity due to excess calories; J45.909 Unspecified asthma, uncomplicated; Q90.9 Down syndrome, unspecified; Z68.43 Body mass index [BMI] 50.0-59.9, adult; Y83.8 Other surgical procedures as the cause of abnormal reaction of the patient, or of later complication, without mention of misadventure at the time of the procedure | CPT/HCPCS: 11042; 17250; A6197 ==

== ENCOUNTER → 2020-08-05 | Outpatient (CLI) | payer MEDICAID | END | disposition home or self-care (01) | LOC: WHH 13:00 | PROVIDERS: ATTEND Family Medicine | DX: T81.41XD Infection following a procedure, superficial incisional surgical site, subsequent encounter (principal); L98.492 Non-pressure chronic ulcer of skin of other sites with fat layer exposed; L73.2 Hidradenitis suppurativa; Q30.0 Choanal atresia; E66.01 Morbid (severe) obesity due to excess calories; J45.909 Unspecified asthma, uncomplicated; Q90.9 Down syndrome, unspecified; Z68.43 Body mass index [BMI] 50.0-59.9, adult; Y83.8 Other surgical procedures as the cause of abnormal reaction of the patient, or of later complication, without mention of misadventure at the time of the procedure | CPT/HCPCS: 11042; A6197 ==

== ENCOUNTER → 2020-08-19 | Outpatient (CLI) | payer MEDICAID ==
[~2020-08-19] MED LIST changes: +HONEY 1 APPL/ML TUBE TP ONE; +LIDOCAINE HCL 4% LTA SOL 4 ML VIAL ONE; -LIDOCAINE/PRILOCAINE CREAM 5GM TUBE TP ONE
== END | disposition home or self-care (01) ==
LOC: WHH 13:00
PROVIDERS: ATTEND Family Medicine
DX: T81.41XD Infection following a procedure, superficial incisional surgical site, subsequent encounter (principal); L98.492 Non-pressure chronic ulcer of skin of other sites with fat layer exposed; L73.2 Hidradenitis suppurativa; Q30.0 Choanal atresia; E66.01 Morbid (severe) obesity due to excess calories; J45.909 Unspecified asthma, uncomplicated; Q90.9 Down syndrome, unspecified; Z68.43 Body mass index [BMI] 50.0-59.9, adult; Y83.8 Other surgical procedures as the cause of abnormal reaction of the patient, or of later complication, without mention of misadventure at the time of the procedure
CPT/HCPCS: 11042; 17250; A6197 ×2

== ENCOUNTER → 2020-09-02 | Outpatient (CLI) | payer MEDICAID ==
[~2020-09-02] MED LIST changes: +LIDOCAINE HCL 2% JELLY 5 ML ONE; -LIDOCAINE HCL 4% LTA SOL 4 ML VIAL ONE
== END | disposition home or self-care (01) ==
LOC: WHH 13:00
PROVIDERS: ATTEND Family Medicine
DX: T81.41XD Infection following a procedure, superficial incisional surgical site, subsequent encounter (principal); L98.492 Non-pressure chronic ulcer of skin of other sites with fat layer exposed; L73.2 Hidradenitis suppurativa; Q30.0 Choanal atresia; E66.01 Morbid (severe) obesity due to excess calories; J45.909 Unspecified asthma, uncomplicated; Q90.0 Trisomy 21, nonmosaicism (meiotic nondisjunction); Z68.43 Body mass index [BMI] 50.0-59.9, adult; Y83.8 Other surgical procedures as the cause of abnormal reaction of the patient, or of later complication, without mention of misadventure at the time of the procedure
CPT/HCPCS: 11042; A6197

== ENCOUNTER → 2020-09-23 | Outpatient (CLI) | payer MEDICAID | END | disposition home or self-care (01) | LOC: WHH 13:00 | PROVIDERS: ATTEND Family Medicine | DX: L98.492 Non-pressure chronic ulcer of skin of other sites with fat layer exposed (principal); L73.2 Hidradenitis suppurativa; Q30.0 Choanal atresia; E66.01 Morbid (severe) obesity due to excess calories; J45.909 Unspecified asthma, uncomplicated; Q90.0 Trisomy 21, nonmosaicism (meiotic nondisjunction); Z68.43 Body mass index [BMI] 50.0-59.9, adult | CPT/HCPCS: 11042; A6197 ==

== ENCOUNTER → 2020-10-14 | Outpatient (CLI) | payer MEDICAID | END | disposition home or self-care (01) | LOC: WHH 13:00 | PROVIDERS: ATTEND Family Medicine | DX: L98.492 Non-pressure chronic ulcer of skin of other sites with fat layer exposed (principal); L73.2 Hidradenitis suppurativa; Q30.0 Choanal atresia; E66.01 Morbid (severe) obesity due to excess calories; J45.909 Unspecified asthma, uncomplicated; Z68.43 Body mass index [BMI] 50.0-59.9, adult; Y83.8 Other surgical procedures as the cause of abnormal reaction of the patient, or of later complication, without mention of misadventure at the time of the procedure | CPT/HCPCS: 11042; 17250; A6197 ==

== ENCOUNTER → 2020-11-18 | Outpatient (CLI) | payer MEDICAID ==
[~2020-11-18] MED LIST changes: -HONEY 1 APPL/ML TUBE TP ONE
== END | disposition home or self-care (01) ==
LOC: WHH 13:00
PROVIDERS: ATTEND Family Medicine
DX: L98.492 Non-pressure chronic ulcer of skin of other sites with fat layer exposed (principal); L73.2 Hidradenitis suppurativa; Q30.0 Choanal atresia; E66.01 Morbid (severe) obesity due to excess calories; J45.909 Unspecified asthma, uncomplicated; Z68.43 Body mass index [BMI] 50.0-59.9, adult
CPT/HCPCS: 11042; 17250; A6197

== ENCOUNTER → 2020-12-02 | Outpatient (CLI) | payer MEDICAID ==
[~2020-12-02] MED LIST changes: -LIDOCAINE HCL 2% JELLY 5 ML ONE; +LIDOCAINE HCL 4% LTA SOL 4 ML VIAL ONE
== END | disposition home or self-care (01) ==
LOC: WHH 12:30
PROVIDERS: ATTEND Family Medicine
DX: L98.492 Non-pressure chronic ulcer of skin of other sites with fat layer exposed (principal); L73.2 Hidradenitis suppurativa; Q30.0 Choanal atresia; E66.01 Morbid (severe) obesity due to excess calories; J45.909 Unspecified asthma, uncomplicated; Z68.43 Body mass index [BMI] 50.0-59.9, adult
CPT/HCPCS: 11042; 11045; A6197

== ENCOUNTER → 2020-12-09 | Outpatient (CLI) | payer MEDICAID ==
[~2020-12-09] MED LIST changes: +LIDOCAINE HCL 2% JELLY 5 ML ONE; -LIDOCAINE HCL 4% LTA SOL 4 ML VIAL ONE; +SILVER NITRATE APPLICATOR 1 SWAB TP ONE
== END | disposition home or self-care (01) ==
LOC: WHH 13:00
PROVIDERS: ATTEND Family Medicine
DX: L98.492 Non-pressure chronic ulcer of skin of other sites with fat layer exposed (principal); L73.2 Hidradenitis suppurativa; Q30.0 Choanal atresia; E66.01 Morbid (severe) obesity due to excess calories; J45.909 Unspecified asthma, uncomplicated; Z68.43 Body mass index [BMI] 50.0-59.9, adult
CPT/HCPCS: 11042; 11045; A6197

== ENCOUNTER → 2021-01-13 | Outpatient (CLI) | payer MEDICAID ==
[~2021-01-13] MED LIST changes: +HONEY 1 APPL/ML TUBE TP ONE; -SILVER NITRATE APPLICATOR 1 SWAB TP ONE
== END | disposition home or self-care (01) ==
LOC: WHH 13:00
PROVIDERS: ATTEND Family Medicine
DX: L98.492 Non-pressure chronic ulcer of skin of other sites with fat layer exposed (principal); L73.2 Hidradenitis suppurativa; Q30.0 Choanal atresia; E66.01 Morbid (severe) obesity due to excess calories; J45.909 Unspecified asthma, uncomplicated; Z68.43 Body mass index [BMI] 50.0-59.9, adult
CPT/HCPCS: 11042; 11045 ×2; A6197

== ENCOUNTER → 2021-01-27 | Outpatient (CLI) | payer MEDICAID ==
[~2021-01-27] MED LIST changes: +SILVER NITRATE APPLICATOR 1 SWAB TP ONE
== END ==
LOC: WHH 13:00
PROVIDERS: ATTEND Family Medicine
DX: L98.492 Non-pressure chronic ulcer of skin of other sites with fat layer exposed (principal); L73.2 Hidradenitis suppurativa; Q30.0 Choanal atresia; J45.909 Unspecified asthma, uncomplicated; E66.01 Morbid (severe) obesity due to excess calories; Z68.43 Body mass index [BMI] 50.0-59.9, adult
CPT/HCPCS: 11042; 11045; 17250; A6197

== ENCOUNTER → 2021-02-03 | Outpatient (CLI) | payer MEDICAID ==
[~2021-02-03] MED LIST changes: -SILVER NITRATE APPLICATOR 1 SWAB TP ONE
== END | disposition home or self-care (01) ==
LOC: WHH 13:00
PROVIDERS: ATTEND Family Medicine
DX: L98.492 Non-pressure chronic ulcer of skin of other sites with fat layer exposed (principal); Q30.0 Choanal atresia; J45.909 Unspecified asthma, uncomplicated; E66.01 Morbid (severe) obesity due to excess calories; Z68.43 Body mass index [BMI] 50.0-59.9, adult
CPT/HCPCS: 11042; 11045; 17250; A6197

== ENCOUNTER → 2021-02-17 | Outpatient (CLI) | payer MEDICAID ==
[~2021-02-17] MED LIST changes: -HONEY 1 APPL/ML TUBE TP ONE
== END | disposition home or self-care (01) ==
LOC: WHH 12:55
PROVIDERS: ATTEND Family Medicine
DX: L73.2 Hidradenitis suppurativa (principal); L98.492 Non-pressure chronic ulcer of skin of other sites with fat layer exposed; Q30.0 Choanal atresia; J45.909 Unspecified asthma, uncomplicated; E66.01 Morbid (severe) obesity due to excess calories; Z68.43 Body mass index [BMI] 50.0-59.9, adult
CPT/HCPCS: 11042; 11045; A6197

== ENCOUNTER → 2021-03-03 | Outpatient (CLI) | payer MEDICAID | END | disposition home or self-care (01) | LOC: WHH 13:00 | PROVIDERS: ATTEND Family Medicine | DX: E11.622 Type 2 diabetes mellitus with other skin ulcer (principal); L98.492 Non-pressure chronic ulcer of skin of other sites with fat layer exposed; L73.2 Hidradenitis suppurativa; Q30.0 Choanal atresia; J45.909 Unspecified asthma, uncomplicated; E66.01 Morbid (severe) obesity due to excess calories; Z68.43 Body mass index [BMI] 50.0-59.9, adult | CPT/HCPCS: 11042; 11045; 17250; A6197 ==

== ENCOUNTER → 2021-03-17 | Outpatient (CLI) | payer MEDICAID ==
[~2021-03-17] MED LIST changes: +HONEY 1 APPL/ML TUBE TP ONE
== END | disposition home or self-care (01) ==
LOC: WHH 13:04
PROVIDERS: ATTEND Family Medicine
DX: L73.2 Hidradenitis suppurativa (principal); L98.492 Non-pressure chronic ulcer of skin of other sites with fat layer exposed; Q30.0 Choanal atresia; J45.909 Unspecified asthma, uncomplicated; E66.01 Morbid (severe) obesity due to excess calories; Z68.43 Body mass index [BMI] 50.0-59.9, adult
CPT/HCPCS: 11042; 11045; A6197

== ENCOUNTER → 2021-03-31 | Outpatient (CLI) | payer MEDICAID ==
[~2021-03-31] MED LIST changes: -HONEY 1 APPL/ML TUBE TP ONE; -LIDOCAINE HCL 2% JELLY 5 ML ONE; +LIDOCAINE HCL 4% LTA SOL 4 ML VIAL ONE
== END | disposition home or self-care (01) ==
LOC: WHH 13:00
PROVIDERS: ATTEND Family Medicine
DX: L73.2 Hidradenitis suppurativa (principal); L98.492 Non-pressure chronic ulcer of skin of other sites with fat layer exposed; Q30.0 Choanal atresia; J45.909 Unspecified asthma, uncomplicated; E66.01 Morbid (severe) obesity due to excess calories; Z68.43 Body mass index [BMI] 50.0-59.9, adult
CPT/HCPCS: 99214; A6197

== ENCOUNTER → 2021-04-14 | Outpatient (CLI) | payer MEDICAID | END | disposition home or self-care (01) | LOC: WHH 13:04 | PROVIDERS: ATTEND Family Medicine | DX: L73.2 Hidradenitis suppurativa (principal); L98.492 Non-pressure chronic ulcer of skin of other sites with fat layer exposed; Q30.0 Choanal atresia; J45.909 Unspecified asthma, uncomplicated; E66.01 Morbid (severe) obesity due to excess calories; Z68.43 Body mass index [BMI] 50.0-59.9, adult | CPT/HCPCS: 11042; 11045; 17250; A6197 ==

== ENCOUNTER → 2021-04-28 | Outpatient (CLI) | payer MEDICAID | END | disposition home or self-care (01) | LOC: WHH 13:01 | PROVIDERS: ATTEND Family Medicine | DX: L73.2 Hidradenitis suppurativa (principal); L98.492 Non-pressure chronic ulcer of skin of other sites with fat layer exposed; Q30.0 Choanal atresia; J45.909 Unspecified asthma, uncomplicated; E66.01 Morbid (severe) obesity due to excess calories; Z68.43 Body mass index [BMI] 50.0-59.9, adult | CPT/HCPCS: 11042; 11045; 17250; A6197 ==

== ENCOUNTER → 2021-05-19 | Outpatient (CLI) | payer MEDICAID | END | disposition home or self-care (01) | LOC: WHH 13:01 | PROVIDERS: ATTEND Family Medicine | DX: L73.2 Hidradenitis suppurativa (principal); L98.492 Non-pressure chronic ulcer of skin of other sites with fat layer exposed; Q30.0 Choanal atresia; J45.909 Unspecified asthma, uncomplicated; E66.01 Morbid (severe) obesity due to excess calories; Z68.43 Body mass index [BMI] 50.0-59.9, adult | CPT/HCPCS: 11042; 11045; 17250; A6197; 97597; 97598 ==

== ENCOUNTER → 2021-06-02 | Outpatient (CLI) | payer MEDICAID ==
[~2021-06-02] MED LIST changes: +SILVER NITRATE APPLICATOR 1 SWAB TP ONE
== END | disposition home or self-care (01) ==
LOC: WHH 13:00
PROVIDERS: ATTEND Family Medicine
DX: L73.2 Hidradenitis suppurativa (principal); L98.492 Non-pressure chronic ulcer of skin of other sites with fat layer exposed; Q30.0 Choanal atresia; J45.909 Unspecified asthma, uncomplicated; E66.01 Morbid (severe) obesity due to excess calories; Z68.43 Body mass index [BMI] 50.0-59.9, adult
CPT/HCPCS: 11042; 11045; 17250; A6197

== ENCOUNTER → 2021-08-06 | Outpatient (CLI) | payer MEDICAID | END | disposition home or self-care (01) | LOC: WHH 07:57 | PROVIDERS: ATTEND Family Medicine | DX: T81.89XA Other complications of procedures, not elsewhere classified, initial encounter (principal); L73.2 Hidradenitis suppurativa; E11.622 Type 2 diabetes mellitus with other skin ulcer; L98.492 Non-pressure chronic ulcer of skin of other sites with fat layer exposed; Q30.0 Choanal atresia; Q90.9 Down syndrome, unspecified; J45.909 Unspecified asthma, uncomplicated; E66.01 Morbid (severe) obesity due to excess calories; Z68.43 Body mass index [BMI] 50.0-59.9, adult; Z88.8 Allergy status to other drugs, medicaments and biological substances; Z79.899 Other long term (current) drug therapy; Z91.010 Allergy to peanuts; Y83.8 Other surgical procedures as the cause of abnormal reaction of the patient, or of later complication, without mention of misadventure at the time of the procedure; Y92.238 Other place in hospital as the place of occurrence of the external cause | CPT/HCPCS: 99214 ==

== ENCOUNTER → 2021-10-22 | Outpatient (CLI) | payer MEDICAID ==
[~2021-10-22] MED LIST changes: -SILVER NITRATE APPLICATOR 1 SWAB TP ONE
== END | disposition home or self-care (01) ==
LOC: WHH 08:06
PROVIDERS: ATTEND Family Medicine
DX: T81.89XD Other complications of procedures, not elsewhere classified, subsequent encounter (principal); L73.2 Hidradenitis suppurativa; E11.622 Type 2 diabetes mellitus with other skin ulcer; L98.492 Non-pressure chronic ulcer of skin of other sites with fat layer exposed; Q90.9 Down syndrome, unspecified; J45.909 Unspecified asthma, uncomplicated; E66.01 Morbid (severe) obesity due to excess calories; Z68.43 Body mass index [BMI] 50.0-59.9, adult; Z88.8 Allergy status to other drugs, medicaments and biological substances; Z79.899 Other long term (current) drug therapy; Z91.010 Allergy to peanuts; Y83.8 Other surgical procedures as the cause of abnormal reaction of the patient, or of later complication, without mention of misadventure at the time of the procedure
CPT/HCPCS: 99214; A6022

== ENCOUNTER → 2021-11-05 | Outpatient (CLI) | payer MEDICAID | END | disposition home or self-care (01) | LOC: WHH 08:01 | PROVIDERS: ATTEND Family Medicine | DX: T81.89XD Other complications of procedures, not elsewhere classified, subsequent encounter (principal); L73.2 Hidradenitis suppurativa; E11.622 Type 2 diabetes mellitus with other skin ulcer; L98.492 Non-pressure chronic ulcer of skin of other sites with fat layer exposed; Q90.9 Down syndrome, unspecified; J45.909 Unspecified asthma, uncomplicated; E66.01 Morbid (severe) obesity due to excess calories; Z68.43 Body mass index [BMI] 50.0-59.9, adult; Z88.8 Allergy status to other drugs, medicaments and biological substances; Z79.899 Other long term (current) drug therapy; Z91.010 Allergy to peanuts; Y83.8 Other surgical procedures as the cause of abnormal reaction of the patient, or of later complication, without mention of misadventure at the time of the procedure | CPT/HCPCS: 99214; A6022 ==

== ENCOUNTER → 2021-11-19 | Outpatient (CLI) | payer MEDICAID | END | disposition home or self-care (01) | LOC: WHH 08:05 | PROVIDERS: ATTEND Family Medicine | DX: T81.89XD Other complications of procedures, not elsewhere classified, subsequent encounter (principal); L73.2 Hidradenitis suppurativa; E11.622 Type 2 diabetes mellitus with other skin ulcer; L98.492 Non-pressure chronic ulcer of skin of other sites with fat layer exposed; Q90.9 Down syndrome, unspecified; J45.909 Unspecified asthma, uncomplicated; E66.01 Morbid (severe) obesity due to excess calories; Z68.43 Body mass index [BMI] 50.0-59.9, adult; Z88.8 Allergy status to other drugs, medicaments and biological substances; Z79.899 Other long term (current) drug therapy; Z91.010 Allergy to peanuts; Y83.8 Other surgical procedures as the cause of abnormal reaction of the patient, or of later complication, without mention of misadventure at the time of the procedure | CPT/HCPCS: 99214 ==

== ENCOUNTER → 2021-12-10 | Outpatient (CLI) | payer MEDICAID | END | disposition home or self-care (01) | LOC: WHH 07:57 | PROVIDERS: ATTEND Family Medicine | DX: L73.2 Hidradenitis suppurativa (principal); E11.622 Type 2 diabetes mellitus with other skin ulcer; L98.492 Non-pressure chronic ulcer of skin of other sites with fat layer exposed; Q90.9 Down syndrome, unspecified; J45.909 Unspecified asthma, uncomplicated; E66.01 Morbid (severe) obesity due to excess calories; Z68.43 Body mass index [BMI] 50.0-59.9, adult; Z88.8 Allergy status to other drugs, medicaments and biological substances; Z79.899 Other long term (current) drug therapy; Z91.010 Allergy to peanuts | CPT/HCPCS: 99214; A6022 ==

== ENCOUNTER → 2022-02-04 | Outpatient (CLI) | payer MEDICAID | LOC: WHH 08:16 | PROVIDERS: ATTEND Family Medicine | DX: L73.2 Hidradenitis suppurativa (principal); E11.622 Type 2 diabetes mellitus with other skin ulcer; L98.492 Non-pressure chronic ulcer of skin of other sites with fat layer exposed; Q90.9 Down syndrome, unspecified; J45.909 Unspecified asthma, uncomplicated; E66.01 Morbid (severe) obesity due to excess calories; Z68.43 Body mass index [BMI] 50.0-59.9, adult; Z79.899 Other long term (current) drug therapy; Z91.010 Allergy to peanuts; Z88.8 Allergy status to other drugs, medicaments and biological substances | CPT/HCPCS: 99214 ==

== ENCOUNTER → 2022-03-11 | Outpatient (CLI) | payer MEDICAID | END | disposition home or self-care (01) | LOC: WHH 08:10 | PROVIDERS: ATTEND Family Medicine | DX: L73.2 Hidradenitis suppurativa (principal); E11.622 Type 2 diabetes mellitus with other skin ulcer; L98.492 Non-pressure chronic ulcer of skin of other sites with fat layer exposed; Q90.9 Down syndrome, unspecified; J45.909 Unspecified asthma, uncomplicated; E66.01 Morbid (severe) obesity due to excess calories; Z68.43 Body mass index [BMI] 50.0-59.9, adult; Z79.899 Other long term (current) drug therapy; Z91.010 Allergy to peanuts; Z88.8 Allergy status to other drugs, medicaments and biological substances | CPT/HCPCS: 99214 ==

== ENCOUNTER → 2022-03-25 | Outpatient (CLI) | payer MEDICAID | END | disposition home or self-care (01) | LOC: WHH 08:18 | PROVIDERS: ATTEND Family Medicine | DX: L73.2 Hidradenitis suppurativa (principal); E11.622 Type 2 diabetes mellitus with other skin ulcer; L98.492 Non-pressure chronic ulcer of skin of other sites with fat layer exposed; Q90.9 Down syndrome, unspecified; J45.909 Unspecified asthma, uncomplicated; E66.01 Morbid (severe) obesity due to excess calories; Z68.43 Body mass index [BMI] 50.0-59.9, adult; Z79.899 Other long term (current) drug therapy; Z91.010 Allergy to peanuts; Z88.8 Allergy status to other drugs, medicaments and biological substances | CPT/HCPCS: 99214 ==

== ENCOUNTER → 2022-04-08 | Outpatient (CLI) | payer MEDICAID | END | disposition home or self-care (01) | LOC: WHH 08:10 | PROVIDERS: ATTEND Family Medicine | DX: L73.2 Hidradenitis suppurativa (principal); E11.622 Type 2 diabetes mellitus with other skin ulcer; L98.491 Non-pressure chronic ulcer of skin of other sites limited to breakdown of skin; Q90.9 Down syndrome, unspecified; Q30.0 Choanal atresia; J45.909 Unspecified asthma, uncomplicated; E66.01 Morbid (severe) obesity due to excess calories; Z68.43 Body mass index [BMI] 50.0-59.9, adult; Z79.899 Other long term (current) drug therapy; Z88.8 Allergy status to other drugs, medicaments and biological substances | CPT/HCPCS: 99214 ==

== ENCOUNTER → 2022-05-06 | Outpatient (CLI) | payer MEDICAID | END | disposition home or self-care (01) | LOC: WHH 08:03 | PROVIDERS: ATTEND Family Medicine | DX: L73.2 Hidradenitis suppurativa (principal); E11.622 Type 2 diabetes mellitus with other skin ulcer; L98.491 Non-pressure chronic ulcer of skin of other sites limited to breakdown of skin; J45.909 Unspecified asthma, uncomplicated; E66.9 Obesity, unspecified; Q90.9 Down syndrome, unspecified; Q30.0 Choanal atresia; E66.01 Morbid (severe) obesity due to excess calories; Z68.43 Body mass index [BMI] 50.0-59.9, adult; Z79.899 Other long term (current) drug therapy; Z88.8 Allergy status to other drugs, medicaments and biological substances | CPT/HCPCS: 99214; A6248 ==

== ENCOUNTER → 2022-06-10 | Outpatient (CLI) | payer MEDICAID | END | disposition home or self-care (01) | LOC: WHH 08:08 | PROVIDERS: ATTEND Family Medicine | DX: L73.2 Hidradenitis suppurativa (principal); E11.622 Type 2 diabetes mellitus with other skin ulcer; L98.491 Non-pressure chronic ulcer of skin of other sites limited to breakdown of skin; J45.909 Unspecified asthma, uncomplicated; E66.9 Obesity, unspecified; Q90.9 Down syndrome, unspecified; Q30.0 Choanal atresia; E66.01 Morbid (severe) obesity due to excess calories; Z68.43 Body mass index [BMI] 50.0-59.9, adult; Z79.899 Other long term (current) drug therapy; Z88.8 Allergy status to other drugs, medicaments and biological substances | CPT/HCPCS: 99214; A6248 ==

== ENCOUNTER → 2022-07-01 | Outpatient (CLI) | payer MEDICAID | END | disposition home or self-care (01) | LOC: WHH 08:02 | PROVIDERS: ATTEND Family Medicine | DX: L73.2 Hidradenitis suppurativa (principal); E11.622 Type 2 diabetes mellitus with other skin ulcer; L98.491 Non-pressure chronic ulcer of skin of other sites limited to breakdown of skin; J45.909 Unspecified asthma, uncomplicated; E66.9 Obesity, unspecified; Q90.9 Down syndrome, unspecified; Q30.0 Choanal atresia; E66.01 Morbid (severe) obesity due to excess calories; Z68.43 Body mass index [BMI] 50.0-59.9, adult; Z79.899 Other long term (current) drug therapy; Z88.8 Allergy status to other drugs, medicaments and biological substances | CPT/HCPCS: 99214; A6248 ==

== ENCOUNTER → 2022-07-22 | Outpatient (CLI) | payer MEDICAID | END | disposition home or self-care (01) | LOC: WHH 08:00 | PROVIDERS: ATTEND Family Medicine | DX: L73.2 Hidradenitis suppurativa (principal); E11.622 Type 2 diabetes mellitus with other skin ulcer; L98.491 Non-pressure chronic ulcer of skin of other sites limited to breakdown of skin; J45.909 Unspecified asthma, uncomplicated; E66.9 Obesity, unspecified; Q90.9 Down syndrome, unspecified; Q30.0 Choanal atresia; E66.01 Morbid (severe) obesity due to excess calories; Z68.43 Body mass index [BMI] 50.0-59.9, adult; Z79.899 Other long term (current) drug therapy; Z88.8 Allergy status to other drugs, medicaments and biological substances | CPT/HCPCS: 99214; A6248 ==

== ENCOUNTER → 2022-08-05 | Outpatient (CLI) | payer MEDICAID | END | disposition home or self-care (01) | LOC: WHH 07:43 | PROVIDERS: ATTEND Family Medicine | DX: L73.2 Hidradenitis suppurativa (principal); E11.622 Type 2 diabetes mellitus with other skin ulcer; L98.491 Non-pressure chronic ulcer of skin of other sites limited to breakdown of skin; J45.909 Unspecified asthma, uncomplicated; E66.9 Obesity, unspecified; Q90.9 Down syndrome, unspecified; Q30.0 Choanal atresia; E66.01 Morbid (severe) obesity due to excess calories; Z68.43 Body mass index [BMI] 50.0-59.9, adult; Z79.899 Other long term (current) drug therapy; Z88.8 Allergy status to other drugs, medicaments and biological substances | CPT/HCPCS: 99214; A6248 ==

== ENCOUNTER → 2022-08-19 | Outpatient (CLI) | payer MEDICAID | END | disposition home or self-care (01) | LOC: WHH 08:02 | PROVIDERS: ATTEND Family Medicine | DX: L73.2 Hidradenitis suppurativa (principal); E11.622 Type 2 diabetes mellitus with other skin ulcer; L98.491 Non-pressure chronic ulcer of skin of other sites limited to breakdown of skin; J45.909 Unspecified asthma, uncomplicated; Q90.9 Down syndrome, unspecified; Q30.0 Choanal atresia; E66.01 Morbid (severe) obesity due to excess calories; Z68.43 Body mass index [BMI] 50.0-59.9, adult; Z79.899 Other long term (current) drug therapy; Z88.8 Allergy status to other drugs, medicaments and biological substances | CPT/HCPCS: 99214 ==

== ENCOUNTER → 2022-08-25 | Outpatient (CLI) | payer MEDICAID | END | disposition home or self-care (01) | LOC: LAB 16:14 | PROVIDERS: ATTEND Family Medicine | DX: L73.2 Hidradenitis suppurativa (principal) | CPT/HCPCS: 36415; 86480 ==

== ENCOUNTER → 2022-09-02 | Outpatient (CLI) | payer MEDICAID | END | disposition home or self-care (01) | LOC: WHH 08:10 | PROVIDERS: ATTEND Family Medicine | DX: L73.2 Hidradenitis suppurativa (principal); E11.622 Type 2 diabetes mellitus with other skin ulcer; L98.491 Non-pressure chronic ulcer of skin of other sites limited to breakdown of skin; J45.909 Unspecified asthma, uncomplicated; Q90.9 Down syndrome, unspecified; Q30.0 Choanal atresia; E66.01 Morbid (severe) obesity due to excess calories; Z68.43 Body mass index [BMI] 50.0-59.9, adult; Z79.899 Other long term (current) drug therapy; Z88.8 Allergy status to other drugs, medicaments and biological substances | CPT/HCPCS: 99214; G0463 ==

== ENCOUNTER → 2022-09-23 | Outpatient (CLI) | payer MEDICAID | END | disposition home or self-care (01) | LOC: WHH 07:33 | PROVIDERS: ATTEND Family Medicine | DX: L73.2 Hidradenitis suppurativa (principal); E11.622 Type 2 diabetes mellitus with other skin ulcer; L98.491 Non-pressure chronic ulcer of skin of other sites limited to breakdown of skin; J45.909 Unspecified asthma, uncomplicated; Q90.9 Down syndrome, unspecified; Q30.0 Choanal atresia; E66.01 Morbid (severe) obesity due to excess calories; Z68.43 Body mass index [BMI] 50.0-59.9, adult; Z79.899 Other long term (current) drug therapy; Z88.8 Allergy status to other drugs, medicaments and biological substances | CPT/HCPCS: 99214; A6248 ==

== ENCOUNTER → 2022-10-07 | Outpatient (CLI) | payer MEDICARE, MEDICAID | END | disposition home or self-care (01) | LOC: WHH 08:01 | PROVIDERS: ATTEND Family Medicine | DX: L73.2 Hidradenitis suppurativa (principal); E11.622 Type 2 diabetes mellitus with other skin ulcer; L98.491 Non-pressure chronic ulcer of skin of other sites limited to breakdown of skin; J45.909 Unspecified asthma, uncomplicated; Q90.9 Down syndrome, unspecified; Q30.0 Choanal atresia; E66.01 Morbid (severe) obesity due to excess calories; Z68.43 Body mass index [BMI] 50.0-59.9, adult; Z79.899 Other long term (current) drug therapy; Z88.8 Allergy status to other drugs, medicaments and biological substances | CPT/HCPCS: 87070; G0463 ==

== ENCOUNTER → 2022-10-28 | Outpatient (CLI) | payer MEDICARE, MEDICAID | END | disposition home or self-care (01) | LOC: WHH 08:01 | PROVIDERS: ATTEND Family Medicine | DX: L73.2 Hidradenitis suppurativa (principal); E11.622 Type 2 diabetes mellitus with other skin ulcer; L98.491 Non-pressure chronic ulcer of skin of other sites limited to breakdown of skin; J45.909 Unspecified asthma, uncomplicated; Q90.9 Down syndrome, unspecified; Q30.0 Choanal atresia; E66.01 Morbid (severe) obesity due to excess calories; Z68.43 Body mass index [BMI] 50.0-59.9, adult; Z79.899 Other long term (current) drug therapy; Z88.8 Allergy status to other drugs, medicaments and biological substances | CPT/HCPCS: G0463; A6248 ==

== ENCOUNTER → 2022-12-02 | Outpatient (CLI) | payer MEDICARE, MEDICAID | END | disposition home or self-care (01) | LOC: WHH 08:09 | PROVIDERS: ATTEND Family Medicine | DX: L73.2 Hidradenitis suppurativa (principal); E11.622 Type 2 diabetes mellitus with other skin ulcer; L98.491 Non-pressure chronic ulcer of skin of other sites limited to breakdown of skin; J45.909 Unspecified asthma, uncomplicated; E66.9 Obesity, unspecified; Q90.9 Down syndrome, unspecified; Q30.0 Choanal atresia; E66.01 Morbid (severe) obesity due to excess calories; Z68.43 Body mass index [BMI] 50.0-59.9, adult; Z79.899 Other long term (current) drug therapy; Z88.8 Allergy status to other drugs, medicaments and biological substances | CPT/HCPCS: G0463 ==

== ENCOUNTER → 2022-12-16 | Outpatient (CLI) | payer MEDICARE, MEDICAID | END | disposition home or self-care (01) | LOC: WHH 08:03 | PROVIDERS: ATTEND Family Medicine | DX: L73.2 Hidradenitis suppurativa (principal); E11.622 Type 2 diabetes mellitus with other skin ulcer; L98.491 Non-pressure chronic ulcer of skin of other sites limited to breakdown of skin; Q90.9 Down syndrome, unspecified; Q30.0 Choanal atresia; J45.909 Unspecified asthma, uncomplicated; E66.01 Morbid (severe) obesity due to excess calories; Z68.43 Body mass index [BMI] 50.0-59.9, adult; Z79.899 Other long term (current) drug therapy; Z88.8 Allergy status to other drugs, medicaments and biological substances | CPT/HCPCS: G0463; A6248 ==

== ENCOUNTER → 2022-12-30 | Outpatient (CLI) | payer MEDICARE, MEDICAID | END | disposition home or self-care (01) | LOC: WHH 08:05 | PROVIDERS: ATTEND Family Medicine | DX: L73.2 Hidradenitis suppurativa (principal); E11.622 Type 2 diabetes mellitus with other skin ulcer; L98.491 Non-pressure chronic ulcer of skin of other sites limited to breakdown of skin; Q90.9 Down syndrome, unspecified; Q30.0 Choanal atresia; J45.909 Unspecified asthma, uncomplicated; E66.01 Morbid (severe) obesity due to excess calories; Z68.43 Body mass index [BMI] 50.0-59.9, adult; Z79.899 Other long term (current) drug therapy; Z88.8 Allergy status to other drugs, medicaments and biological substances | CPT/HCPCS: G0463 ==

== ENCOUNTER → 2023-01-13 | Outpatient (CLI) | payer MEDICARE, MEDICAID | END | disposition home or self-care (01) | LOC: WHH 07:59 | PROVIDERS: ATTEND Family Medicine | DX: L73.2 Hidradenitis suppurativa (principal); E11.622 Type 2 diabetes mellitus with other skin ulcer; L98.491 Non-pressure chronic ulcer of skin of other sites limited to breakdown of skin; Q90.9 Down syndrome, unspecified; Q30.0 Choanal atresia; J45.909 Unspecified asthma, uncomplicated; E66.01 Morbid (severe) obesity due to excess calories; Z68.43 Body mass index [BMI] 50.0-59.9, adult; Z79.899 Other long term (current) drug therapy; Z88.8 Allergy status to other drugs, medicaments and biological substances | CPT/HCPCS: G0463; A6248 ==

== ENCOUNTER → 2023-02-03 | Outpatient (CLI) | payer MEDICARE, MEDICAID | END | disposition home or self-care (01) | LOC: WHH 08:02 | PROVIDERS: ATTEND Family Medicine | DX: L73.2 Hidradenitis suppurativa (principal); E11.622 Type 2 diabetes mellitus with other skin ulcer; L98.491 Non-pressure chronic ulcer of skin of other sites limited to breakdown of skin; Q90.9 Down syndrome, unspecified; Q30.0 Choanal atresia; J45.909 Unspecified asthma, uncomplicated; N49.2 Inflammatory disorders of scrotum; E66.01 Morbid (severe) obesity due to excess calories; Z68.43 Body mass index [BMI] 50.0-59.9, adult; Z79.899 Other long term (current) drug therapy; Z88.8 Allergy status to other drugs, medicaments and biological substances | CPT/HCPCS: G0463; A6248 ==

== ENCOUNTER → 2023-02-24 | Outpatient (CLI) | payer MEDICARE, MEDICAID | END | disposition home or self-care (01) | LOC: WHH 08:06 | PROVIDERS: ATTEND Nurse Practitioner Family | DX: L73.2 Hidradenitis suppurativa (principal); E11.622 Type 2 diabetes mellitus with other skin ulcer; L98.491 Non-pressure chronic ulcer of skin of other sites limited to breakdown of skin; Q90.9 Down syndrome, unspecified; Q30.0 Choanal atresia; J45.909 Unspecified asthma, uncomplicated; N49.2 Inflammatory disorders of scrotum; E66.01 Morbid (severe) obesity due to excess calories; Z68.43 Body mass index [BMI] 50.0-59.9, adult; Z79.899 Other long term (current) drug therapy; Z88.8 Allergy status to other drugs, medicaments and biological substances | CPT/HCPCS: G0463; A6248 ==

== ENCOUNTER → 2023-03-17 | Outpatient (CLI) | payer MEDICARE, MEDICAID | END | disposition home or self-care (01) | LOC: WHH 08:23 | PROVIDERS: ATTEND Nurse Practitioner Family | DX: L73.2 Hidradenitis suppurativa (principal); E11.622 Type 2 diabetes mellitus with other skin ulcer; L98.492 Non-pressure chronic ulcer of skin of other sites with fat layer exposed; Q90.9 Down syndrome, unspecified; Q30.0 Choanal atresia; J45.909 Unspecified asthma, uncomplicated; N49.2 Inflammatory disorders of scrotum; E66.01 Morbid (severe) obesity due to excess calories; Z79.899 Other long term (current) drug therapy; Z88.8 Allergy status to other drugs, medicaments and biological substances | CPT/HCPCS: 11042; 87070; 11045; A6248 ==

== ENCOUNTER → 2023-04-14 | Outpatient (CLI) | payer MEDICARE, MEDICAID | END | disposition home or self-care (01) | LOC: WHH 08:23 | PROVIDERS: ATTEND Nurse Practitioner Family | DX: L73.2 Hidradenitis suppurativa (principal); E11.622 Type 2 diabetes mellitus with other skin ulcer; L98.492 Non-pressure chronic ulcer of skin of other sites with fat layer exposed; Q90.9 Down syndrome, unspecified; Q30.0 Choanal atresia; J45.909 Unspecified asthma, uncomplicated; N49.2 Inflammatory disorders of scrotum; E66.01 Morbid (severe) obesity due to excess calories; Z68.43 Body mass index [BMI] 50.0-59.9, adult; Z79.899 Other long term (current) drug therapy; Z88.8 Allergy status to other drugs, medicaments and biological substances | CPT/HCPCS: 87070; G0463 ==

== ENCOUNTER → 2023-05-05 | Outpatient (CLI) | payer MEDICARE, MEDICAID | END | disposition home or self-care (01) | LOC: WHH 08:03 | PROVIDERS: ATTEND Nurse Practitioner Family | DX: E11.622 Type 2 diabetes mellitus with other skin ulcer (principal); L98.492 Non-pressure chronic ulcer of skin of other sites with fat layer exposed; L73.2 Hidradenitis suppurativa; J45.909 Unspecified asthma, uncomplicated; E66.9 Obesity, unspecified; Z68.43 Body mass index [BMI] 50.0-59.9, adult; Z79.899 Other long term (current) drug therapy | CPT/HCPCS: G0463 ==

== ENCOUNTER → 2023-06-16 | Outpatient (CLI) | payer MEDICARE, MEDICAID | END | disposition home or self-care (01) | LOC: WHH 08:01 | PROVIDERS: ATTEND Nurse Practitioner Family | DX: L73.2 Hidradenitis suppurativa (principal); E11.622 Type 2 diabetes mellitus with other skin ulcer; L98.492 Non-pressure chronic ulcer of skin of other sites with fat layer exposed; J45.909 Unspecified asthma, uncomplicated; E66.9 Obesity, unspecified; Z68.33 Body mass index [BMI] 33.0-33.9, adult; Z79.899 Other long term (current) drug therapy | CPT/HCPCS: G0463 ==